=== PATIENT | male | born 1985 | race Two or more races ===

== ENCOUNTER 2019-05-31 16:07 | Emergency (ER) | payer OTHER ==
[~2019-05-31] VITALS: Ht 175.3 cm; Wt 70.3 kg
[2019-05-31 16:21] VITALS: BP 111/72
[2019-05-31] MEDS ORDERED: TETANUS-DIPTH-ACEL PERTUSSIS 0.5ML SYRG IM ONE (17:15)
[2019-05-31] MEDS ORDERED: LIDOCAINE 1% HCL (LOCAL ANESTH.) INJ 20ML MDV IJ ONE (17:15)
== END 2019-05-31 17:53 | disposition home or self-care (01) ==
LOC: ER 16:07
DX: S81.811A Laceration without foreign body, right lower leg, initial encounter (principal); W18.09XA Striking against other object with subsequent fall, initial encounter; Y93.89 Activity, other specified; Y92.69 Other specified industrial and construction area as the place of occurrence of the external cause; Y99.8 Other external cause status
CPT/HCPCS: 12004; 90471; 90715; 99283; J2001